=== PATIENT | male | born 1955 | race African-American/Black ===

== ENCOUNTER 2017-11-01 11:12 | Inpatient (IN) | payer OTHER ==
[~2017-11-01] VITALS: Ht 175.3 cm; Wt 76.9 kg
[2017-11-01] VITALS (12 sets, daily range): BP systolic 115–132; BP diastolic 74–81
--- NOTE | ~2017-11-01 | EKG ---
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 : 1955 Requested By: Santi Kumar Order Number: [id number] MD: Polo Harper Measurements Intervals [place] Rate: 59 P: 67 SD: 139 QRS: 40 QRSD: 107 T: 10 QT: 412 QTc: 409 Interpretive Statements Sinus rhythm No significant abnormality Compared to ECG 12/16/2008 06:35:22 No significant change was found Electronically Signed On 11-02-2017 13:09:40 PRACTICE ADMINISTRATOR by Polo Harper [email or web address] <ELECTRONICALLY SIGNED> By: Polo Harper MD, [facility] 11/02/17 1309 Polo Harper MD, [facility] /EPI
--- NOTE | ~2017-11-01 | EKG ---
[address] [address] ELECTROCARDIOGRAM REPORT Name: LYNNGUILLERMO Room #: 204-P ADM IN .R.#: [id number] Admission: 11/01/17 Attend Phys: Ketan Michel MD Discharge: Date of : 51 Report #: [id number] THIS REPORT FOR: //name// [facility] ED Test Date: 2017-11-01 Test Time: 11:17:42 Pat Name: GUILLERMO BAILEY Department: Room: 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: [facility] : 1955 Requested By: Roddy Rai Order Number: [id number] MD: Polo Harper Measurements Intervals [place] Rate: 57 P: 42 [place]: 154 QRS: 58 QRSD: 122 T: 89 QT: 399 QTc: 389 Interpretive Statements Sinus rhythm ST elevation, inferior injury pattern Compared to ECG 12/16/2008 06:35:22 Myocardial infarct finding now present Electronically Signed On 11-02-2017 12:57:54 PARKING METER INSTALLER by Polo Harper [email or web address] <ELECTRONICALLY SIGNED> By: Polo Harper MD, [facility] 11/02/17 1257 1117 1117 Polo Harper MD, [facility] /EPI
--- NOTE | ~2017-11-01 | CATHLAB ---
[facility] [address] [place] [address] INVASIVE PROCEDURE REPORT Name: GUILLERMO BAILEY Ean Room #: 204-P [facility] IN [facility]#: [id number] Admission: 11/01/17 Attend Phys: Ketan Michel, Discharge: Date of : 51 Date of Service: 11/01/17 1704 Report #: [id number] THIS REPORT FOR: //name// APPROVED REPORT Patient Details Patient Status: ED Room #: The patient is a 62 year-old male Event Personnel Santi Kumar Mold Filler Plastic Dolls, Arlene Robbins RN , Ivon Estrada Sandifer, David Monitor, Jewel Joiner electric cell tender Performed Left Heart Cath w/or w/o Coronaries [id number] [facility] FAWN Revasc AMI Total/Sub Single RCA C9606 AMIREVSING Indication STEMI , Dyspnea, Chest pain Risk Factors Hypercholesterolemia, Coronary Artery DiseaseHypertension, Tobacco History () Previous Procedures/Diagnoses Previous PCI, Previous [place] Procedure Narrative The patient was brought emergently to the Cardiac Catheterization Laboratory and was prepped and draped in a sterile manner. The Right Groin^ was infiltrated with 1% Lidocaine subcutaneous anesthesia. A PINNACLE 6FR Sheath #[id number] sheath was inserted into the RFA^. Coronary angiography was performed using coronary diagnostic catheters. The right coronary system was accessed and visualized with a JR4 GUIDE catheter. The left coronary system was accessed and visualized with a JL4 catheter. The left ventricle was accessed and visualized with a PIGTAIL catheter. Left ventricular/Aortic Valve gradient assessed via catheter pullback. Left ventriculogram was performed in 30 degree projection. Closure device was deployed with a 6 Fr MYNXGRIP 6/7F #[id number]. The patient tolerated the procedure well and there were no complications associated with the procedure. There was no hematoma. Intraoperative Conscious Sedation Sedation start time: Case end Time: [facility] [place] [address] INVASIVE PROCEDURE REPORT Name: GUILLERMO BAILEY Ean Room #: 204-P [facility] IN [facility]#: [id number] Admission: 11/01/17 Attend Phys: Ketan Michel, Discharge: Date of : 51 Date of Service: 11/01/17 1704 Report #: [id number] 14.46 Fentanyl 25 mcg Versed 1 mg Fluoro Time: 10.55 minutes Dose: 960 mGy Contrast Type and Amount: Omnipaque 190 ml Coronary Angiography The patient's coronary anatomy is right dominant. Diagnostic Cath Left Main Large-caliber vessel, mild disease distally. LAD There is a severe stenosis in the mid segment, 70%. Diagonal 1 Patent vessel, with no flow-limiting lesions. Diagonal 2 Patent vessel, with no flow-limiting lesions. Circumflex Mild disease in the proximal segment, 20%. OM1 Patent vessel, with no flow-limiting lesions. Right Coronary Dominant vessel with stents in the proximal segment, patent with mild restenosis. There is a total occlusion in the distal RCA. Left Ventriculography The left ventricle is normal in size with normal contractility. The left ventricular ejection fraction is estimated to be >55%. Left ventricular wall motion abnormalities are present. There is focal hypokinesis of the basal inferior wall. Hemodynamics The aortic pressure is 166/74 mmHg with a mean of 90 mmHg. The left ventricular pressure is 105/11 mmHg with a mean of mmHg. The left ventricular end diastolic pressure is 21 mmHg. PCI Technique Lesion Anticoagulation was achieved with Angiomax. Patient was preloaded with Plavix. Percutaneous coronary intervention was performed on the distal right coronary artery. The lesion stenosis prior to intervention was 100% with BOB 0 flow. A LAUNCHER 6FR JR 4 #[id number] Guide Catheter was used to engage the RCA ostium. A LUGE Interventional Guidewire was used to cross the lesion. BALLOON DILATION A Balloon catheter Sprinter OTW 2.5 x 12 #[id number] was inserted and inflated up to 8.00atm for 10seconds. Additional Inflation: 10.00atm for 14seconds. [facility] [address] [place] [address] INVASIVE PROCEDURE REPORT Name: GUILLERMO BAILEY Ean Room #: 204-P [facility] IN ..#: [id number] Admission: 11/01/17 Attend Phys: Ketan Michel, Discharge: Date of : 51 Date of Service: 11/01/17 1704 Report #: [id number] STENT DEPLOYMENT A drug-eluting stent RESOLUTE RX 2.5 X 14 #[id number] was inserted and inflated up to 18.00atm for 19seconds. Final angiography reveals 0 % stenosis with BOB 3 flow. Conclusion 1. Successful insertion of a drug-eluting stent into the total occlusion in the distal RCA, with sikhism of BOB-3 blood flow. 2. Patent stent in the proximal RCA. 3. Severe stenosis in the mid LAD, consider staged angioplasty. 4. Normal LV systolic function, with focal hypokinesis of the basal inferior segment. 5. Aggressive risk factor management, including tobacco cessation. 6. Recommend dual antiplatelet therapy. <ELECTRONICALLY SIGNED> By: Santi Kumar MD 11/01/17 1704 1704 1704 Santi Kumar MD /INF
--- NOTE | ~2017-11-01 | EKG ---
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: [employer] : 1955 Requested By: Santi Kmuar Order Number: [id number] MD: Polo Harper Measurements Intervals [place] Rate: 59 P: 52 [place]: 142 QRS: 52 QRSD: 88 T: 41 QT: 411 QTc: 408 Interpretive Statements Sinus rhythm No significant abnormality Compared to ECG 12/16/2008 06:35:22 Inferior injury pattern no longer present Electronically Signed On 11-02-2017 13:04:38 LICENSED MENTAL HEALTH PROFESSIONAL by Polo Harper [email or web address] <ELECTRONICALLY SIGNED> By: oPlo Harper MD, [facility] 11/02/17 1304 1725 1725 Polo Harper MD, [facility] /EPI
[~2017-11-01 11:12] MED LIST: CYCLOBENZAPRINE10 MG PO; IBUPROFEN 800800 MG PO; LOPRESSOR
[2017-11-01 11:31] LABS: ABSOLUTE NEUTROPHILS 4.4 thou/uL (1.4-8.2); BASOPHILS 0.8 % (0.0-2.0); EOSINOPHILS 2.1 % (0.0-3.0); HEMATOCRIT 44.8 % (42.0-52.0); HEMOGLOBIN 15.4 gm/dL (14.0-18.0); LYMPHOCYTES 40.7 % (24.0-44.0); MCH 32.5 pg (26.0-34.0); MCHC 34.4 g/dL (28.0-37.0); MCV 94.5 fL (80.0-100.0); MONOCYTES 7.5 % (1.0-8.0); PLATELET COUNT 239 thou/uL (150-400); POLYS 48.9 % (36.0-66.0); RBC 4.74 mil/uL (4.50-6.00); RDW 13.5 % (10.5-14.5); WBC 9.1 thou/uL (4.0-11.0)
[2017-11-01 11:44] LABS: ANION GAP 3 mmol/L (7-16); BUN 13 mg/dL (7-18); CALCIUM 9.1 mg/dL (8.5-10.1); CHLORIDE 107 mmol/L (98-107); CO2 29 mmol/L (21-32); GLUCOSE 81 mg/dL (74-106); POTASSIUM 3.8 mmol/L (3.5-5.1); SODIUM 139 mmol/L (136-145)
[2017-11-01 11:52] LABS: TROPONIN-I < 0.04 ng/mL (<0.06)
[2017-11-01 14:44] LABS: CHOLESTEROL 185 mg/dL (<200); HDL CHOLESTEROL 32 mg/dL (>40); LDL CHOLESTEROL 125 mg/dL (<100); TC:HDL 5.8 Ratio (Not establshd); TRIGLYCERIDE 144 mg/dL (<150); VLDL 29 mg/dL (<40)
[2017-11-02] VITALS (8 sets, daily range): BP systolic 107–123; BP diastolic 61–79
[2017-11-02 04:30] LABS: CALCIUM 8.4 mg/dL (8.5-10.1); CREATININE 0.8 mg/dL (0.7-1.3); POTASSIUM 3.9 mmol/L (3.5-5.1)
[2017-11-02 04:31] LABS: TROPONIN-I 22.04 ng/mL (<0.06)
[2017-11-02 05:36] LABS: HEMATOCRIT 42.7 % (42.0-52.0); HEMOGLOBIN 14.9 gm/dL (14.0-18.0); MCH 32.6 pg (26.0-34.0); MCHC 34.8 g/dL (28.0-37.0); MCV 93.7 fL (80.0-100.0); RBC 4.56 mil/uL (4.50-6.00); RDW 13.6 % (10.5-14.5); WBC 8.1 thou/uL (4.0-11.0)
[2017-11-03 05:01] VITALS: BP 107/71
[2017-11-03 07:30] VITALS: BP 119/73
[2017-11-03 10:22] VITALS: BP 107/61
[2017-11-03 11:17] VITALS: BP 107/68
[2017-11-03] MEDS ORDERED: CLOPIDOGREL75 MG PO (13:14)
[2017-11-03] MEDS ORDERED: LISINOPRIL10 MG PO (13:15)
[2017-11-03] MEDS ORDERED: METOPROLOL SUCC25 M1 PO (13:15)
[2017-11-03] MEDS ORDERED: ATORVASTATIN CA40 MG PO (13:15)
[2017-11-03] MEDS ORDERED: ASPIR 8181 MG PO (13:21)
[2017-11-03 13:36] VITALS: BP 107/61
== END 2017-11-03 14:15 | disposition home or self-care (01) | DRG 247 ==
LOC: ER 11:12 → EROBS 13:02 → 2N 15:46
PROVIDERS: Internal Medicine Cardiovascular Disease; Nurse Practitioner; Nurse Practitioner Adult Health
DX: I21.3 ST elevation (STEMI) myocardial infarction of unspecified site (principal); E78.5 Hyperlipidemia, unspecified; F17.210 Nicotine dependence, cigarettes, uncomplicated; I25.5 Ischemic cardiomyopathy; E78.00 Pure hypercholesterolemia, unspecified; Z95.5 Presence of coronary angioplasty implant and graft; I25.2 Old myocardial infarction; Z79.899 Other long term (current) drug therapy; Z91.14 Patient's other noncompliance with medication regimen; Z79.82 Long term (current) use of aspirin
CPT/HCPCS: 10081

== ENCOUNTER → 2017-12-30 | Outpatient (CLI) | payer OTHER ==
[~2017-12-30] MED LIST changes: +ASPIR 8181 MG PO; +ATORVASTATIN CA40 MG PO; +CLOPIDOGREL75 MG PO; +LISINOPRIL10 MG PO; +METOPROLOL SUCC25 M1 PO
== END ==
LOC: NUC 06:37
DX: I25.10 Atherosclerotic heart disease of native coronary artery without angina pectoris (principal); E78.5 Hyperlipidemia, unspecified; I10 Essential (primary) hypertension; I21.9 Acute myocardial infarction, unspecified; Z88.8 Allergy status to other drugs, medicaments and biological substances; Z87.891 Personal history of nicotine dependence; Z82.49 Family history of ischemic heart disease and other diseases of the circulatory system

== ENCOUNTER → 2021-02-16 | Outpatient (CLI) | payer OTHER | LOC: SJCVC 11:48 → SJCVCIMAG 11:48 | PROVIDERS: ATTEND Internal Medicine | DX: I25.10 Atherosclerotic heart disease of native coronary artery without angina pectoris (principal); E78.00 Pure hypercholesterolemia, unspecified; R55 Syncope and collapse; Z13.220 Encounter for screening for lipoid disorders; I10 Essential (primary) hypertension; I25.2 Old myocardial infarction; F17.200 Nicotine dependence, unspecified, uncomplicated; Z98.890 Other specified postprocedural states; Z95.5 Presence of coronary angioplasty implant and graft; Z79.82 Long term (current) use of aspirin; Z79.899 Other long term (current) drug therapy; Z82.49 Family history of ischemic heart disease and other diseases of the circulatory system ==

== ENCOUNTER 2021-02-21 10:18 | Inpatient (IN) | payer OTHER ==
[~2021-02-21] VITALS: Ht 172.7 cm; Wt 66.7 kg
[2021-02-21] VITALS (7 sets, daily range): BP systolic 90–123; BP diastolic 55–67
--- NOTE | ~2021-02-21 | P ---
Formerly [facility] [place] [address] PROCEDURE REPORT Name: GUILLERMO BAILEY Room #: 360-P [facility] IN ..#: [id number] Admission: 02/21/21 Attend Phys: Kendell Denton MD Discharge: 02/24/21 Date of : 51 Report #: [id number] THIS REPORT FOR: cc: Haroon Schmitt Andrea RNP McElhinney, Christian C. MD ~ DOC #: [id number] cc: Dr. Haroon Power MD DATE OF SERVICE: 02/24/2021 PROCEDURE PERFORMED: Colonoscopy with polypectomies. HISTORY OF PRESENT ILLNESS: The patient is a 65-year-old male admitted with a melanotic type stools as well as abdominal pain. Admit hemoglobin was 6.5. Upper endoscopy was performed by myself on the day of admission, which showed multiple antral ulcers. No active bleeding. The patient was taking aspirin prior to admission. He has never had an EGD or colonoscopy before this admission. Plan is for colonoscopy next day. He was transfused 2 units of packed cells. His hemoglobin at this time is 9.0. DESCRIPTION OF PROCEDURE: The risks and benefits of the procedure were explained to the patient, those risks including but not limited to bleeding, perforation and the risk of sedation. He understood these risks and gave informed consent. Sedation was given using propofol per anesthesia. Next, a digital rectal exam was initially performed, which was normal. Next, using a standard Olympus colonoscope, the scope was placed in the patient's anus and advanced under direct vision to the cecum. The overall prep was good. The cecum and ileocecal valve were normal in appearance. The ascending colon was normal. In the transverse colon, a 4 mm sessile polyp was noted. This was removed with cold forceps. In the descending colon, a 3 mm sessile polyp also removed with cold forceps. In the sigmoid colon, a total of 3 polyps were noted. The smallest was 4 mm and removed with cold forceps. The 2 larger were pedunculated polyps that were 8-10 mm in size, both of these were removed by snare cautery. A few small diverticula were noted. The rectal mucosa was normal. On retroflexion, no abnormalities were noted. The scope was then withdrawn and the procedure terminated. The patient tolerated the procedure well. IMPRESSION: 1. Colonic polyps as described above. 2. Mild diverticulosis. 3. Otherwise, normal colonoscopy. RECOMMENDATIONS: [address] [address] PROCEDURE REPORT Name: GUILLERMO BAILEY Room #: 360-P [facility]#: [id number] Admission: 02/21/21 Attend Phys: Kendell Denton MD Discharge: 02/24/21 Date of : 51 Report #: [id number] 1. Await biopsy results. 2. Repeat colonoscopy in 5 years. Thank you for allowing me to participate in his care. Josue Power MD CCM/ALL By: 1238 2207 Josue Power MD /nt
[2021-02-21 10:51] LABS: BASOPHILS 0.5 % (0.0-2.0); EOSINOPHILS 2.1 % (0.0-3.0); HEMOGLOBIN 6.5 gm/dL (14.0-18.0); MCH 32.4 pg (26.0-34.0); MCHC 33.6 g/dL (28.0-37.0); MCV 96.4 fL (80.0-100.0); MONOCYTES 4.1 % (1.0-8.0); PLATELET COUNT 260 thou/uL (150-400); POLYS 71.3 % (36.0-66.0); RBC 2.02 mil/uL (4.50-6.00); RDW 15.6 % (10.5-14.5); WBC 8.5 thou/uL (4.0-11.0)
[2021-02-21 10:53] LABS: ANION GAP 7 mmol/L (7-16); BUN 17 mg/dL (7-18); CALCIUM 8.4 mg/dL (8.5-10.1); CHLORIDE 108 mmol/L (98-107); CO2 25 mmol/L (21-32); GLUCOSE 118 mg/dL (74-106); HEMATOCRIT 19.4 % (42.0-52.0); POTASSIUM 4.4 mmol/L (3.5-5.1); SODIUM 140 mmol/L (136-145)
[2021-02-21 10:57] LABS: URINE BILIRUBIN NEGATIVE (Negative); URINE BLOOD NEGATIVE (Negative); URINE CLARITY CLEAR; URINE COLOR YELLOW; URINE GLUCOSE-RANDOM* NEGATIVE (Negative); URINE KETONES NEGATIVE (Negative); URINE LEUKOCYTES-REFLEX NEGATIVE (Negative); URINE NITRITE-REFLEX NEGATIVE (Negative); URINE PROTEIN (DIPSTICK) NEGATIVE (Negative); URINE UROBILINOGEN 0.2 E.U./dl (0.2-1.0)
[2021-02-21 11:06] LABS: ALBUMIN 2.9 g/dL (3.4-5.0); MAGNESIUM 1.9 mg/dL (1.8-2.4); SGOT 19 U/L (15-37); SGPT 23 U/L (16-63); TOTAL BILIRUBIN 0.3 mg/dL (0.2-1.0); TOTAL PROTEIN 6.4 g/dL (6.4-8.2); TROPONIN-I <0.06 ng/mL (<0.06)
--- NOTE | 2021-02-21 11:31 | EKG ---
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
[2021-02-21 12:04] LABS: ANISOCYTOSIS 1+; POLYCHROMASIA OCCASIONAL
--- NOTE | 2021-02-21 18:27 | NUR ---
PT ADMITTED FROM ED. ALERT OX4. ORIENTED TO ROOM AND POC. PT TO GI LAB FOR EGD, MULTIPLE ULCERS SEEN, NOT BLEEDING SEE FULL REPORT. PT CURRENTLY RECEIVING IU PRBC. NO BM NOTED. NO BLEEDING NOTED
[2021-02-21 18:35] LABS: % SATURATION 12 % (20-39); IRON 40 ug/dL (65-175); TIBC 342 ug/dL (250-450)
[2021-02-21 21:51] LABS: HEMATOCRIT 21.7 % (42.0-52.0); HEMOGLOBIN 7.3 gm/dL (14.0-18.0)
--- NOTE | 2021-02-21 22:39 | NUR ---
INFORMED DR DELGADO THAT PT HGB 7.3 AFTER 1 UNIT RBCS. NO ACTIVE BLEEDING NOTED. PER DR DELGADO, D/C PROTONIX GTT WHEN CURRENT BAG IS FINISHED. THEN START PROTONIX 40MG PO BID.
[2021-02-22] VITALS: BP 111/66
[2021-02-22 03:42] LABS: ABSOLUTE NEUTROPHILS 4.9 thou/uL (1.4-8.2); BASOPHILS 0.5 % (0.0-2.0); HEMOGLOBIN 7.4 gm/dL (14.0-18.0); LYMPHOCYTES 26.9 % (24.0-44.0); MCH 32.5 pg (26.0-34.0); MCHC 33.8 g/dL (28.0-37.0); MCV 96.2 fL (80.0-100.0); MONOCYTES 4.9 % (1.0-8.0); PLATELET COUNT 216 thou/uL (150-400); POLYS 65.7 % (36.0-66.0); RBC 2.29 mil/uL (4.50-6.00); RDW 15.9 % (10.5-14.5); WBC 7.4 thou/uL (4.0-11.0)
[2021-02-22 04:05] LABS: CALCIUM 8.2 mg/dL (8.5-10.1); CREATININE 0.9 mg/dL (0.7-1.3); MAGNESIUM 2.1 mg/dL (1.8-2.4); POTASSIUM 4.3 mmol/L (3.5-5.1)
[2021-02-22 04:11] LABS: CHOLESTEROL 100 mg/dL (<200); HDL CHOLESTEROL 34 mg/dL (>40); LDL CHOLESTEROL 56 mg/dL (<100); TC:HDL 2.9 Ratio (Not establshd); TRIGLYCERIDE 50 mg/dL (<150); VLDL 10 mg/dL (<40)
--- NOTE | 2021-02-22 04:29 | NUR ---
PT SLEPT OFF AND ON DURING THE NIGHT. RESPIRATIONS EVEN AND UNLABORED. VSS. AFEBRILE. DENIES ANY DIZZINESS. HGB >7 AFTER BLOOD TRANSFUSION YESTERDAY EVENING. PT VOIDS PER URINAL. GOOD URINE OUTPUT. NO S/S GI BLEEDING NOTED. PROGRESSING TOWARD POC GOALS. WILL CONTINUE TO MONITOR FURTHER.
[2021-02-22 04:39] LABS: SERUM ASSESSMENT Clear
[2021-02-22 04:45] VITALS: BP 106/6; BP 106/66
[2021-02-22 08:44] VITALS: BP 92/64
[2021-02-22 11:36] VITALS: BP 92/59
--- NOTE | 2021-02-22 12:29 | P ---
[facility] [place] [address] PROCEDURE REPORT Name: GUILLERMO BAILEY Room #: 360-P ADM IN M.R.#: [id number] Admission: 02/21/21 Attend Phys: Kendell Denton MD Discharge: Date of : 51 Report #: [id number] THIS REPORT FOR: cc: Haroon Schmitt Andrea RNP McElhinney, Christian C. MD ~ DOC #: [id number] cc: MD Josue Enamorado MD DATE OF SERVICE: 02/21/2021 PROCEDURE PERFORMED: Upper endoscopy. HISTORY OF PRESENT ILLNESS: The patient is a 65-year-old male with dark black stools over the last several weeks. He does complain of generalized abdominal pain beginning approximately 2 months ago. No previous history of GI bleed. Hemoglobin on admission was 6.5. CT scan of the abdomen and pelvis showing gastric wall thickening. No previous history of upper endoscopy. He is on aspirin 81 mg. Apparently on Plavix as well. He has history of coronary artery disease with ID, status post stent placement several years ago. His troponin is normal. On admission, he had several syncopal episodes within the last few weeks and is actually wearing a Holter monitor. Plan is for upper endoscopy. DESCRIPTION OF PROCEDURE: The risks and benefits of the procedure were explained to the patient, those risks including but not limited to bleeding, perforation and the risk of sedation. He understood these risks and gave informed consent. Sedation was given using propofol per anesthesia. Next, using a standard Olympus upper endoscope, the scope was placed in the patient's mouth and advanced under direct vision through the esophagus, stomach and into the second portion of the duodenum. The larynx was normal in appearance. The esophagus was normal throughout. The GE junction was normal. Overall, the gastric mucosa was normal in the fundus and body. In the antrum, multiple ulcers were noted. Several were 1-1.5 cm in size, clean white base near the angularis. A larger 2 cm ulcer was noted in the prepyloric region. No evidence of active bleeding. A small amount of old blood was seen. There were no visible vessels or clots seen on any of the ulcers today. The pylorus was somewhat narrowed due to the ulcer in the prepyloric area; however, the scope did pass without difficulty. The duodenal bulb, first and second portion were all normal. No evidence of blood or ulcerations in the duodenum. I did not obtain biopsies today for H. pylori as the patient has been on Plavix recently. At this point, the scope was then withdrawn and the procedure terminated. The patient tolerated the procedure well. IMPRESSION: 1. Several antral ulcers with a large prepyloric ulcer as described above, [facility] [address] [place] [address] PROCEDURE REPORT Name: LYNNGUILLERMO ERIC Room #: 360-P [facility] IN M.R.#: [id number] Admission: 02/21/21 Attend Phys: Kendell Denton MD Discharge: Date of : 51 Report #: [id number] likely source of recent gastrointestinal bleed. No evidence of active bleeding or visible vessel at this time. 2. Otherwise, normal upper endoscopy. RECOMMENDATIONS: 1. Continue PPI therapy long-term. 2. We will add Carafate q.a.c. and at bedtime. 3. Continue to hold anticoagulation therapy at this time. 4. We will send stool test for H. pylori antigen. 5. The patient is to be transfused today. We will continue to monitor hemoglobin closely. If stable, possibly discharge her home tomorrow. Thank you for allowing me to participate in his care. Josue Power MD CCM/SAUD <ELECTRONICALLY SIGNED> By: Josue Power MD 02/22/21 1229 1406 2307 Josue Power MD /nt
--- NOTE | 2021-02-22 15:49 | NUR ---
INITIAL ASSESSMENT: SW reviewed chart and spoke with nursing and attending physician. Pt was admitted from home due to GI bleed/anemia. Pt had EGD yesterday and blood transfusion. Hemoglobin stable. Anticipate pt will be ready for discharge tomorrow. DAVIAN met with pt at bedside. Introduced role of SW. Pt is alert/orientated x 4. Pt reports he lives at home with his . Prior to admission, pt was independent with ADLs. No use of DME. No hx of services or post-acute placement. Pt does not currently have a PCP. 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 SW to provide pt with [facility] provider list for review and to establish primary care. Plan is for pt to discharge home. DAVIAN is following to assist as needed with discharge planning.
[2021-02-22 16:15] VITALS: BP 100/63
[2021-02-22 19:53] VITALS: BP 100/57
--- NOTE | 2021-02-23 02:41 | NUR ---
ASSESSMENT: PT REMAIN ALERT AND ORIENT TIMES FOUR. UP AD TONYA. DENIES PAIN, SOB AND N/V. SR PER MONITOR. TOLERATING PO INTAKE. HALTER MONITOR INTACT AND PRESENT. IVF INFUSING WITHOUT DIFFICULTY. VSS. DENIES SYNCOPE AND BLOODY STOOLS CURRENTLY. SLOW PROGRESS TOWARDS DC GOALS. WILL CONTINUE TO MONITOR.
[2021-02-23 04:37] VITALS: BP 104/63
[2021-02-23 05:18] LABS: HEMOGLOBIN 6.7 gm/dL (14.0-18.0); RDW 15.4 % (10.5-14.5)
[2021-02-23 05:19] LABS: MCH 32.7 pg (26.0-34.0); MCHC 34.6 g/dL (28.0-37.0); MCV 94.5 fL (80.0-100.0); RBC 2.05 mil/uL (4.50-6.00); WBC 5.3 thou/uL (4.0-11.0)
[2021-02-23 05:38] LABS: HEMATOCRIT 19.4 % (42.0-52.0)
[2021-02-23 06:31] LABS: CALCIUM 7.9 mg/dL (8.5-10.1); MAGNESIUM 2.1 mg/dL (1.8-2.4); POTASSIUM 4.2 mmol/L (3.5-5.1)
[2021-02-23 07:40] VITALS: BP 109/61
--- NOTE | 2021-02-23 07:45 | NUR ---
ASSUMED PT CARE AT SHIFT CHANGE. PT WANTS TO GO HOME TODAY. EXPLAINED BLOOD TRANFUSION PLANNED FOR THIS MORNING. PT STILL INQUIRED IF HE CAN GO HOME TODAY, ENCOURAGED PT TO DISCUSS WITH PHYSICIAN. CONSENT FOR TRANSFUSION HAS BEEN SIGNED. TYPE AND SCREEN VALID UNTIL MIDNIGHT TONIGHT. NO OTHER COMPLAINTS OR CONCERNS AT THIS TIME.
[2021-02-23 08:20] VITALS: BP 107/64; BP 98/57
--- NOTE | 2021-02-23 13:09 | NUR ---
DAVIAN reviewed chart and spoke with nursing and attending physician. Pt's hemoglobin dropped to 6.7. Pt to have blood transfusion today. Anticipate discharge home tomorrow. DAVIAN met with pt at bedside to provide update. Provided pt with list of [facility] providers for primary care. Pt to review list and make an appt. Plan is for pt to discharge home when medically stable. Pt is in the BPCI program. No discharge needs identified at this time. DAVIAN is following to assist as needed with discharge planning.
[2021-02-23 15:22] VITALS: BP 102/603
--- NOTE | 2021-02-23 18:54 | NUR ---
PT HAS BOWEL PREP IN PROCESS.
[2021-02-23 19:38] VITALS: BP 124/76
--- NOTE | 2021-02-24 03:24 | NUR ---
UPON SHIFT ASSESSMENT, PT AOX4. PT DENIES PAIN AND SOB WHILE ON ROOM AIR. PT TOLERATING PO INTAKE OF FLUIDS AND HEART HEALTHY DIET WITHOUT ISSUE, NPO AT MIDNIGHT. PT WITHOUT NAUSEA OR EMESIS. PT AMBULATING INDEPENDENTLY IN ROOM AND TO BATHROOM, RESTING IN BED OTHERWISE. FREQUENT REPOSITIONING ENCOURAGED WHILE IN BED, PT NOTED TO SHIFT INDEPENDENTLY. SENSATION INTACT, CAPILLARY REFILL LESS THAN 3SEC, PERIPHERAL PULSES PALPABLE IN ALL EXTREMITIES. PT ENCOURAGED TO NOTIFY STAFF FOR ALL NEEDS, CALL LIGHT WITHIN REACH, BED LOCKED IN LOWEST POSITION, FREQUENT MONITORING WILL CONTINUE.
[2021-02-24 04:24] VITALS: BP 93/55
[2021-02-24 07:21] VITALS: BP 106/66
[2021-02-24 09:01] LABS: MCH 31.4 pg (26.0-34.0); MCHC 33.2 g/dL (28.0-37.0); MCV 94.6 fL (80.0-100.0); RBC 2.86 mil/uL (4.50-6.00); RDW 15.1 % (10.5-14.5); WBC 7.2 thou/uL (4.0-11.0)
[2021-02-24 11:15] VITALS: BP 111/68
--- NOTE | 2021-02-24 12:05 | NUR ---
SW reviewed chart and spoke with nursing and attending physician. Pt's hemoglobin dropped. Pt to have colonoscopy today. Anticipate pt will be ready for discharge home tomorrow. Pt has list of [facility] providers to establish primary care. Pt is in BPCI program. No discharge needs identified at this time. SW is available to assist should needs arise.
[2021-02-24 14:19] VITALS: BP 112/63
[2021-02-24 15:11] VITALS: BP 117/57
[2021-02-24] MEDS ORDERED: CARAFATE 1 GM TA1 G1 PO (15:58)
[2021-02-24] MEDS ORDERED: PROTONIX40 M2 PO (16:00)
[2021-02-24 16:22] VITALS: BP 117/57
--- NOTE | 2021-02-28 19:07 | PATH ---
[facility] [place] [address] PATHOLOGY RPT PROCEDURE Name: GUILLERMO ALFARO ERIC Room #: 360-P [facility] IN M.R.#: [id number] Admission: 02/21/21 Date of : 51 Discharge: 02/24/21 Report #: [id number] Path Case #: [id number] [facility] Accession Number: [id number] . 01 Material submitted: . PART A: colon - TRANSVERSE COLON POLYP. Modifiers: transverse PART B: colon - DESCENDING COLON POLYP. Modifiers: descending PART C: sigmoid colon - SIGMOID COLON POLYP X3 . 01 Clinical history: . GI BLEED ANEMIA DIVERTICULOSIS, COLON POLYPS . 02 Diagnosis: A. Polyp, transverse colon polyp, endoscopic biopsy: - Tubular adenoma. - Negative for high grade dysplasia. . B. Polyp, descending colon polyp, endoscopic biopsy: - Hyperplastic polyp. - Negative for dysplasia. . C. Polyp x 3, sigmoid colon polyp, endoscopic biopsy: - Tubulovillous adenoma x 2; negative for high grade dysplasia. - Inflamed tubular adenoma x 1; negative for high grade dysplasia. (IUV/db; 02/28/2021) LBQ 02/28/2021 1413 Local . 02 Electronically signed: . Aidee Briseno MD, Pathologist NPI- [id number] . 01 Gross description: . A. Received in formalin labeled "Guillermo Alfaro, transverse colon polyp" is a fragment of brown-brown soft tissue measuring 0.4 x 0.3 x 0.2 cm and 0.3 x 0.3 x 0.2 cm. The specimen is submitted entirely in A1. . B. Received in formalin labeled "Guillermo Alfaro descending colon polyp" is a fragment of borwn-brown soft tissue measuring 0.6 x 0.3 x 0.3 cm and 0.5 x 0.3 x 0.2 cm. The specimen is submitted entirely in B1. . C. Received in formalin labeled "Guillermo Alfaro sigmoid colon polyp x3" are multiple fragments of brown-brown soft tissue measuring in aggregate 2.4 x 0.9 x 0.8 Cm. The 2 largest polyp surgical resection margins are inked black and bisected. The specimen is submitted entirely as follows: C1-C2. One bisected polyp in each cassette [address] [address] PATHOLOGY RPT PROCEDURE Name: GUILLERMO ALFARO [facility] Room #: 360-P [facility] IN M.R.#: [id number] Admission: 02/21/21 Date of : 51 Discharge: 02/24/21 Report #: [id number] Path Case #: [id number] C3. Remaining soft tissue fragments. ([facility]; 02/26/2021) GZA/GZA 02/26/2021 0946 Local . 02 Pathologist provided ICD-10: D12.3, K63.5, D12.5 . 02 CPT . 776955, 307973, 834582 Specimen Comment: A courtesy copy of this report has been sent to [phone], [phone] Specimen Comment: [id number] Specimen Comment: Report sent to / DR MADDEN Performed at: [address], [place] [id number] MD Augusto Justice MD Phone: [phone] Performed at: [address] [id number] MD Aidee Briseno MD Phone: [phone]
== END 2021-02-24 17:30 | disposition home or self-care (01) | DRG 378 ==
LOC: ER 10:18 → 3W 12:53 → EROBS 12:53 → 3W 14:19
PROVIDERS: Emergency Medicine; Internal Medicine; Nurse Practitioner; ADMIT Hospitalist; ATTEND Hospitalist
PROC: 30233N1 Transfusion of Nonautologous Red Blood Cells into Peripheral Vein, Percutaneous Approach (ICD-10-PCS; principal; 2021-02-21)
PROC: 0DJ08ZZ Inspection of Upper Intestinal Tract, Via Natural or Artificial Opening Endoscopic (ICD-10-PCS; 2021-02-21)
PROC: 30233N1 Transfusion of Nonautologous Red Blood Cells into Peripheral Vein, Percutaneous Approach (ICD-10-PCS; 2021-02-21)
PROC: 0DBN8ZZ Excision of Sigmoid Colon, Via Natural or Artificial Opening Endoscopic (ICD-10-PCS; 2021-02-24)
PROC: 0DBM8ZZ Excision of Descending Colon, Via Natural or Artificial Opening Endoscopic (ICD-10-PCS; 2021-02-24)
PROC: 0DBL8ZZ Excision of Transverse Colon, Via Natural or Artificial Opening Endoscopic (ICD-10-PCS; 2021-02-24)
DX: K25.4 Chronic or unspecified gastric ulcer with hemorrhage (principal); I47.2 Ventricular tachycardia; D62 Acute posthemorrhagic anemia; K29.71 Gastritis, unspecified, with bleeding; Z20.822 Contact with and (suspected) exposure to COVID-19; D12.3 Benign neoplasm of transverse colon; I25.5 Ischemic cardiomyopathy; I10 Essential (primary) hypertension; I25.10 Atherosclerotic heart disease of native coronary artery without angina pectoris; E78.5 Hyperlipidemia, unspecified; E61.1 Iron deficiency; F17.210 Nicotine dependence, cigarettes, uncomplicated; Z71.6 Tobacco abuse counseling; I25.2 Old myocardial infarction; Z95.5 Presence of coronary angioplasty implant and graft; Z91.14 Patient's other noncompliance with medication regimen; Z79.82 Long term (current) use of aspirin; Z79.899 Other long term (current) drug therapy
CPT/HCPCS: 10879; 62110; 62900; 70005

== ENCOUNTER → 2021-03-09 | Outpatient (CLI) | payer OTHER ==
[~2021-03-09] MED LIST changes: +CARAFATE 1 GM TA1 G1 PO; +PROTONIX40 M2 PO
== END ==
LOC: SJCVC 13:13
PROVIDERS: ATTEND Internal Medicine Cardiovascular Disease
DX: I25.10 Atherosclerotic heart disease of native coronary artery without angina pectoris (principal); R55 Syncope and collapse; I10 Essential (primary) hypertension; E78.00 Pure hypercholesterolemia, unspecified; I25.2 Old myocardial infarction; F17.210 Nicotine dependence, cigarettes, uncomplicated; Z95.5 Presence of coronary angioplasty implant and graft; Z98.890 Other specified postprocedural states; Z79.899 Other long term (current) drug therapy; Z82.49 Family history of ischemic heart disease and other diseases of the circulatory system

== ENCOUNTER 2021-03-31 15:04 | Emergency (ER) | payer OTHER ==
[~2021-03-31] VITALS: Ht 172.7 cm; Wt 54.4 kg
[2021-03-31 16:02] LABS: ABSOLUTE NEUTROPHILS 4.6 thou/uL (1.4-8.2); EOSINOPHILS 3.1 % (0.0-3.0); HEMATOCRIT 27.6 % (42.0-52.0); HEMOGLOBIN 8.5 gm/dL (14.0-18.0); LYMPHOCYTES 23.2 % (24.0-44.0); MCH 26.2 pg (26.0-34.0); MCV 84.5 fL (80.0-100.0); MONOCYTES 5.7 % (1.0-8.0); PLATELET COUNT 304 thou/uL (150-400); RBC 3.27 mil/uL (4.50-6.00); RDW 21.8 % (10.5-14.5); WBC 6.9 thou/uL (4.0-11.0)
[2021-03-31 17:43] LABS: ANION GAP 11 mmol/L (7-16); BUN 7 mg/dL (7-18); CALCIUM 6.7 mg/dL (8.5-10.1); CHLORIDE 111 mmol/L (98-107); CO2 18 mmol/L (21-32); CREATININE 0.7 mg/dL (0.7-1.3); GLUCOSE 86 mg/dL (74-106); POTASSIUM 3.1 mmol/L (3.5-5.1); SODIUM 140 mmol/L (136-145); TROPONIN-I <0.06 ng/mL (<0.06)
[2021-03-31 19:52] VITALS: BP 127/67
--- NOTE | 2021-04-01 12:18 | EKG ---
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 : 1955 Requested By: Dariel Montelongo Order Number: [id number] MD: Salvador Travis Measurements Intervals [place] Rate: 70 P: 60 [place]: 148 QRS: 51 QRSD: 93 T: 26 QT: 391 QTc: 422 Interpretive Statements Sinus rhythm Probable left atrial enlargement Baseline wander in lead(s) I,III,aVL,V1,V2,V3,V4,V5,V6 Compared to ECG 02/21/2021 10:35:45 No significant changes Electronically Signed On 04-01-2021 12:17:58 CDT by Salvador Travis [email or web address] <ELECTRONICALLY SIGNED> By: Salvador Travis MD 04/01/21 1217 1533 1533 Salvador Travis MD /EPI
== END 2021-03-31 19:52 | disposition home or self-care (01) ==
LOC: ER 15:04
PROVIDERS: Emergency Medicine
DX: R55 Syncope and collapse (principal); I10 Essential (primary) hypertension; E78.5 Hyperlipidemia, unspecified; F17.210 Nicotine dependence, cigarettes, uncomplicated

== ENCOUNTER → 2021-04-13 | Outpatient (CLI) | payer OTHER | LOC: SJCVC 10:50 | PROVIDERS: ATTEND Internal Medicine Cardiovascular Disease | DX: I25.10 Atherosclerotic heart disease of native coronary artery without angina pectoris (principal); I10 Essential (primary) hypertension; E78.00 Pure hypercholesterolemia, unspecified; R55 Syncope and collapse; F17.210 Nicotine dependence, cigarettes, uncomplicated; D64.9 Anemia, unspecified; Z72.89 Other problems related to lifestyle; Z95.5 Presence of coronary angioplasty implant and graft; Z79.899 Other long term (current) drug therapy ==

== ENCOUNTER → 2021-06-15 | Outpatient (CLI) | payer OTHER | LOC: SJCVC 09:49 | PROVIDERS: ATTEND Internal Medicine Cardiovascular Disease | DX: K25.4 Chronic or unspecified gastric ulcer with hemorrhage (principal); I25.10 Atherosclerotic heart disease of native coronary artery without angina pectoris; E78.00 Pure hypercholesterolemia, unspecified; I10 Essential (primary) hypertension; F17.210 Nicotine dependence, cigarettes, uncomplicated; Z95.818 Presence of other cardiac implants and grafts; Z72.89 Other problems related to lifestyle ==